=== PATIENT | female | born 1965 | race Caucasian/White ===

== ENCOUNTER → 2016-06-05 | Outpatient (CLI) | payer MEDICARE ==
[~2016-06-05] MED LIST: BACLOFEN20 MG PO; BACTRIM DS 8001 TAB PO; BENZTROPINE PO; DARVOCET-N 1001 EACH PO; GEODON80 MG PO; KEFLEX 500MG.500 MG PO; KLONOPIN1 M2 PO; LEVAQUIN 500 M500 MG PO; LORTAB 5/500 501 TAB PO; LORTAB 500 MG-71 TAB PO; MELOXICAM15 MG PO; METHOCARBAMOL500 MG PO; NEURONTIN800 MG PO; NORCO 325 MG-51 TAB PO; OMEPRAZOLE40 MG PO; Oxybutynin5 MG PO; PAXIL30 MG PO; PENTASA500 MG PO; PREVACID 30MG C30 M1 OR; PYRIDIUM 200MG200 MG PO; RESTORIL 30MG C30 MG PO; SULFAMETHOXAZOL1 TA6 PO; TENORMIN50 MG PO; VESICARE5 MG PO; XANAX2 MG PO
[2016-06-05 15:04] LABS: HEMOGLOBIN 12.3 g/dL (12.2-16.2); LYMPH # 2.4 K/mm3 (0.7-4.5); LYMPH % 35.8 % (10-50.0)
[2016-06-05 15:06] LABS: BUN 17 mg/dL (7-18)
[2016-06-05 15:19] LABS: GFR (ESTIMATED) 59 ML/MIN (59-)
[2016-06-06 07:37] LABS: HBsAg Screen Negative (Negative); Hep A Ab, IgM Negative (Negative); Hep B Core Ab, IgM Negative (Negative); Hep C Virus Ab 0.2 (0.0-0.9)
== END ==
LOC: CARL-LAB 07:41
PROVIDERS: Nurse Practitioner Family
DX: K50.90 Crohn's disease, unspecified, without complications (principal); Z13.9 Encounter for screening, unspecified; F32.89 Other specified depressive episodes; Z79.899 Other long term (current) drug therapy

== ENCOUNTER → 2016-10-07 | Outpatient (CLI) | payer MEDICARE ==
[2016-10-07 13:03] LABS: BUN 16 mg/dL (7-18)
[2016-10-07 13:04] LABS: GFR (ESTIMATED) 48 ML/MIN (59-)
[2016-10-07 13:46] LABS: HEMOGLOBIN 12.4 g/dL (12.2-16.2); LYMPH # 2.6 K/mm3 (0.7-4.5); LYMPH % 37.6 % (10-50.0)
--- NOTE | 2016-10-08 07:31 | RADIOLOGY REPORT PS360 ---
MRI-BRAIN W/WO HISTORY: Memory loss, dizziness, blurred vision MEMORY LOSS, SLEEP-DISORDERED BREATHING ORDERING PHYSICIAN: ZAHRA QUINN PATIENT AGE: 50 years COMPARISON: 02/07/2016 TECHNIQUE: Standard multiplanar multiecho sequences are performed without and with gadolinium enhancement . FINDINGS: No midline shift, mass effect, intracranial hemorrhage, or hydrocephalus. No enhancing lesions are evident. No intra or extra-axial mass. No evidence of acute infarction. No restricted diffusion. The cerebellopontine angles, cerebellum, and brainstem are unremarkable. The pituitary and optic chiasm are unremarkable. No cerebellar tonsillar ectopia. The canthal gyri are unremarkable in the temporal horns are symmetric. There are bilateral mastoid effusions. No sinus air-fluid level. Mild mucosal thickening involves the ethmoid and right frontal sinus with moderate rightward nasal septal deviation. IMPRESSION: 1. Negative MRI of the brain without and with contrast. 2. Bilateral mastoid sinus disease, paranasal sinus disease, rightward nasal septal deviation
[2016-10-09 12:41] LABS: Antinuclear Antibodies, IFA Negative (.)
== END ==
LOC: RAD 10-01 10:00
PROVIDERS: Specialist
DX: R41.3 Other amnesia (principal); F39 Unspecified mood [affective] disorder; K50.90 Crohn's disease, unspecified, without complications; E78.5 Hyperlipidemia, unspecified; G93.40 Encephalopathy, unspecified; G47.30 Sleep apnea, unspecified
CPT/HCPCS: A9576

== ENCOUNTER → 2016-12-29 | Outpatient (CLI) | payer MEDICARE ==
[~2016-12-29] MED LIST changes: +MOBIC7.5 MG PO; +ROBAXIN-750750 MG PO
[2016-12-29 21:02] LABS: AMPHETAMINES/METAMPHETAMINES NEGATIVE ng/mL (<1000)
[2017-01-04 18:36] LABS: Alprazolam Negative (Cutoff=100); Benzodiazepines Positive ng/mL (Cutoff=100); Clonazepam Positive (.); Clonazepam Confirm 597 ng/mL (Cutoff=100); Flurazepam Negative (Cutoff=100); Lorazepam Negative (Cutoff=100); Midazolam Negative (Cutoff=100); Temazepam Negative (Cutoff=100); Triazolam Negative (Cutoff=100)
== END ==
LOC: LAB 17:58
PROVIDERS: Emergency Medicine
DX: Z79.899 Other long term (current) drug therapy (principal)
CPT/HCPCS: G0480

== ENCOUNTER → 2017-01-27 | Outpatient (CLI) | payer MEDICARE ==
--- NOTE | 2017-01-27 16:33 | RADIOLOGY REPORT PS360 ---
SACRUM AND COCCYX HISTORY: BUTTOCK PAIN ORDERING PHYSICIAN: Papa Palumbo MD PATIENT AGE: 51 years COMPARISON: None FINDINGS: No fracture or dislocation. No lytic or blastic change. Incidental note made of soft tissue calcification superior to the right greater trochanter. IMPRESSION: Negative sacrum/coccyx
[2017-01-27 16:55] LABS: AMPHETAMINES/METAMPHETAMINES NEGATIVE ng/mL (<1000)
[2017-01-27 18:27] LABS: HEMOGLOBIN 12.5 g/dL (12.2-16.2); LYMPH # 2.3 K/mm3 (0.7-4.5); LYMPH % 33.6 % (10-50.0)
[2017-01-27 19:07] LABS: BUN 12 mg/dL (7-18)
[2017-01-27 19:58] LABS: GFR (ESTIMATED) 53 ML/MIN (59-)
[2017-02-01 14:36] LABS: Alprazolam Negative (Cutoff=100); Benzodiazepines Positive ng/mL (Cutoff=100); Clonazepam Positive (.); Clonazepam Confirm >100 ng/mL (Cutoff=100); Flurazepam Negative (Cutoff=100); Lorazepam Negative (Cutoff=100); Midazolam Negative (Cutoff=100); Temazepam Negative (Cutoff=100); Triazolam Negative (Cutoff=100)
== END ==
LOC: RAD 15:15 → LAB 15:15
PROVIDERS: Emergency Medicine
DX: M79.1 Myalgia (principal); R53.83 Other fatigue; Z79.899 Other long term (current) drug therapy
CPT/HCPCS: G0480

== ENCOUNTER 2017-02-14 13:14 | Emergency (ER) | payer MEDICARE ==
[~2017-02-14] VITALS: Ht 175.3 cm; Wt 86.2 kg
--- NOTE | 2017-02-14 13:35 | Emergency Room Report ---
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 N Clinical Suspician of Infection? N Mental Status: 1 - Regular (Normal Baseline) Sepsis Risk:Low Sepsis Risk Have you (or family members/close friends) recently traveled outside the [place]? N If Yes, where/when: Have you had exposure to infectious disease within the past month? TB? Other? Specify: 51 years old white female with chronic lumbar back pain presented with 2 months history LEFT CVA pain no dysuria no hematuria no nausea no vomiting. No fever or chills. Source patient, RN notes reviewed, family, old records, I reviewed her records including Dr. Doe and Dr. Johsnon. ALLERGIES Coded Allergies: hydroxyzine (From [facility]) (Mild, 02/14/17) Home Medications Active Scripts Meloxicam (Mobic 7.5MG) 7.5 MG PO BID #30 TAB Prov: 11/07/16 Reported Medications Paroxetine (Paxil) 30 MG PO BID Lansoprazole (Prevacid) 30 MG OR DAILY ZIPRASIDONE HCL (Geodon) 80 MG PO QHS Omeprazole (Omeprazole 40MG) 40 MG PO DAILY #90 Gabapentin (Neurontin) 800 MG PO TID Oxybutynin Chloride 5 MG PO TID Benztropine Mesylate (Benztropine) 1 MG PO DAILY Clonazepam (Klonopin) 1 MG PO TID HYDROCODONE/ACETAMINOPHEN ([place] 5-325 Tablet) 1 TAB PO Q8 History Medical History General CAD? No Angina: Yes ID: No Hypertension? Yes Hyperlipidemia? No CHF? No DVT? No PE? No COPD? No Asthma? No Anemia? No GERD? No Gastric ulcers? No GI Bleed? No Hernia? Yes Thyroid Problems? No Hypothyroidism? No CVA? No Seizures? No Diabetes? No Renal Insuffiency? No End Stage Renal Disease? No UTI? Yes Stones? No BPH? No GB Disease: No Nephritic Syndrome? No Asplenia? No Hepatitis? No Sickle Cell Disease? No Arthritis? Yes Migraines? No Cataracts? No Glaucoma? No MRSA? No HIV? No TB? No Anxiety? No Depression? No Cancer? No More? 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 Respiratory no symptoms reported Cardiovascular no symptoms reported Gastrointestinal no symptoms reported Genitourinary see HPI. Musculoskeletal no symptoms reported Skin no symptoms reported Psychiatric/Neurological no symptoms reported Physical Exam Vital Signs Vital Signs Date Time Temp Pulse Resp B/P Pulse O2 O2 Flow FiO2 Ox Delivery Rate 02/14 1355 16 02/14 1330 98.0 94 18 123/96 98 - WBC >12,000 or <4,000 or 10% bands? 2 or more SIRS Criteria Met? B/P:123/96 MAP:105 Creatinine >2.0? UA output<0.5ml/kg/hr for 2 hrs? Platelet count >100,000? Lactate >2.0mmol/1? INR >1.2 or PTT > than 60 sec? Evidence of Organ Dysfunction? Provider documented clinical suspician of infection? N Sepsis Criteria Count: 1 Sepsis Risk: Low Sepsis Risk General Appearance normal appearance, WD/WN Eye Exam - bilateral eye normal exam, bilateral eye PERRL, bilateral eye EOMI Ear, Nose, Throat hearing grossly normal, normal ENT inspection Neck normal inspection, non-tender, supple, full range of motion Respiratory Status Yes: trachea midline, chest symmetrical, non tender chest. No: respiratory distress. Lung Sounds bilateral: normal breath sounds, lungs clear. 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 No Results/Orders Laboratory Tests 02/14/17 1345: Sodium 138, Potassium 4.2, Chloride 103, Carbon Dioxide 30, BUN 15, Creatinine 1.1 H, Estimated Creat Clear 83, Estimated GFR (MDRD) 53 L, Glucose 94, Calcium 8.5, Total Bilirubin 0.4, AST 12 L, ALT 17, Alkaline Phosphatase 84, Total Protein 7.3, Albumin 3.5, Globulin 3.8 H, Albumin/Globulin Ratio 0.9 L, WBC 6.5, RBC 4.65, Hgb 12.2, Hct 36.6 L, MCV 78.6 L, RDW 13.8, Plt Count 271, MPV 8.4, Gran % 48.3, Gran # 3.2, Lymphocytes % 41.4, Monocytes % 6.2, Eosinophils % 3.3, Basophils % 0.8, Lymphocytes # 2.7, Monocytes # 0.4, Eosinophils # 0.2, Basophils # 0.1, PUBS MCHC 33.4, MCH 26.3 L 02/14/17 1330: Urine Color YELLOW, Urine Appearance CLEAR, Urine pH 6.0, Ur Specific [employer] >= 1.030, Urine Protein NEGATIVE, Urine Ketones NEGATIVE, Urine Blood NEGATIVE, Urine Nitrate NEGATIVE, Urine Bilirubin NEGATIVE, Urine Urobilinogen 0.2, Ur Leukocyte Esterase NEGATIVE, Urine WBC 3-5, Ur Squamous Epith Cells 10-20, Urine Bacteria 3+, Urine Mucus 3+, Urine Glucose NEGATIVE Current Medication Orders Sig/Chip Start time Last Medication Dose Route Stop Time Status Admin Iopamidol 75 ML ONCE ONE 02/14 1600 UNV 02/14 IV 02/14 1601 1400 Sodium Chloride 10 ML ONCE ONE 02/14 1600 UNV 02/14 IV 02/14 1601 1400 Sodium Chloride 1,000 ML .STK-MED ONE 02/14 1352 DC IV Ketorolac 0 .STK-MED ONE 02/14 1351 DC Tromethamine .ROUTE Sodium Chloride 10 ML PRN PRN 02/14 1345 AC IV 02/15 1333 Ketorolac 30 MG ONCE ONE 02/14 1330 DC 02/14 Tromethamine IV 02/14 1331 1355 Sodium Chloride 1,000 ML .Q1H1M 02/14 1330 DC 02/14 IV 02/14 1430 1356 Sodium Chloride 10 ML PRN PRN 02/14 1330 AC IV 02/15 1330 Orders Procedure Date/time Status DIET-NOTHING BY MOUTH 02/[address] SCAN REQ 02/14 1333 Complete IV SALINE LOCK 02/14 1333 Active CULTURE, URINE 02/14 133 Active URINALYSIS/COMPLETE 02/14 133 Complete CBC WITH AUTO DIFF 02/14 133 Complete CHEM 12 PROFILE 02/14 133 Complete Departure Departure Time of Disposition 1600 Disposition DC Home or Self Care(routine) Clinical Impression Primary Impression: Renal cyst, left Secondary Impressions: Chronic back pain, Constipation, Crohn disease, Ovarian cyst Condition STABLE Referrals [facility] RIVERA,Marc Larsen Additional Instructions the CT scan impression. :The received Toradol IV with relief of her pain. 1. No change 7 cm left renal cyst. 2. 2 cm left ovarian cyst. 3. Constipation I discussed withthe patietn her ct scan findings and advised her to return to Dr Doe regarding her CT findings. I gave her indocine 25 mg TID prn pain follow up with Dr. Squires in AM. Discharge Counseling Counseled pt/family regarding diagnosis, test results, medications/RX, home care, follow up needs Prescriptions Current Visit Scripts Indomethacin (Indocin) 25 MG PO Q8HP PRN pain #21 CAP ED Critical Care Critical Care No If Critical Care minutes are documented, the time involved in the performance of seperately reportable procedures was not counted toward critical care time documented. I directly delivered medical care to this critically ill and/or injured patient. Timely evaluation and treatment was necessary to address the significant organ system(s) dysfunction present in this patient. at 1604
[2017-02-14 13:44] LABS: URINE BILIRUBIN - DIPSTICK NEGATIVE (NEG); URINE BLOOD NEGATIVE (NEG)
[2017-02-14 13:53] LABS: HEMOGLOBIN 12.2 g/dL (12.2-16.2); LYMPH # 2.7 K/mm3 (0.7-4.5); LYMPH % 41.4 % (10-50.0)
--- NOTE | 2017-02-14 15:41 | RADIOLOGY REPORT PS360 ---
CT ABD PELVIS W/ CONTRAST CLINICAL INDICATION: Left-sided flank pain LEFT CVA PAIN WITH HX OF PYELONEPHRITIS ORDERING PHYSICIAN: Ирина Antunez MD PATIENT AGE: 51 years COMPARISON: 06/06/2016 TECHNIQUE: Axial images obtained with sagittal and coronal reformats. PROCEDURE: Oral Contrast: None IV Contrast:. 75 mL [id number]. FINDINGS: There are atelectatic changes in the lung bases with trace pleural effusion bilaterally. The liver, gallbladder, spleen, adrenal glands, and pancreas are unremarkable. There is a 7 cm left renal cyst. No hydronephrosis or obstructing ureteral calculi evident. No evidence of appendicitis, diverticulitis, intestinal obstruction, or free air. There is moderate amount retained colonic feces throughout the colon. There is a 2.3 cm left ovarian cyst. No acute bony anomalies. Defect is present in the proximal femur from prior intramedullary tao. No acute bony anomalies. IMPRESSION: 1. No change 7 cm left renal cyst. 2. 2 cm left ovarian cyst. 3. Constipation
[2017-02-14] MEDS ORDERED: INDOCIN25 MG PO (16:04)
[2017-02-14 16:47] VITALS: BP 166/101
== END 2017-02-14 16:48 | disposition home or self-care (01) ==
LOC: ER 13:14
PROVIDERS: Emergency Medicine
DX: N28.1 Cyst of kidney, acquired (principal); K59.00 Constipation, unspecified; N83.202 Unspecified ovarian cyst, left side; K50.90 Crohn's disease, unspecified, without complications; I10 Essential (primary) hypertension; Z88.8 Allergy status to other drugs, medicaments and biological substances
CPT/HCPCS: Q9967

== ENCOUNTER → 2017-02-24 | Outpatient (CLI) | payer MEDICARE ==
[~2017-02-24] MED LIST changes: +INDOCIN25 MG PO
[2017-02-24 17:08] LABS: AMPHETAMINES/METAMPHETAMINES NEGATIVE ng/mL (<1000)
== END ==
LOC: LAB 16:00
PROVIDERS: Emergency Medicine
DX: Z79.899 Other long term (current) drug therapy (principal)

== ENCOUNTER → 2017-04-27 | Outpatient (CLI) | payer MEDICARE ==
[~2017-04-27] MED LIST changes: +HIPREX1 GM PO
[2017-04-27 17:45] LABS: AMPHETAMINES/METAMPHETAMINES NEGATIVE ng/mL (<1000)
[2017-05-01 12:36] LABS: Alprazolam Negative (Cutoff=100); Benzodiazepines Positive ng/mL (Cutoff=100); Clonazepam Positive (.); Clonazepam Confirm 454 ng/mL (Cutoff=100); Flurazepam Negative (Cutoff=100); Lorazepam Negative (Cutoff=100); Midazolam Negative (Cutoff=100); Temazepam Negative (Cutoff=100); Triazolam Negative (Cutoff=100)
== END ==
LOC: LAB 16:57
PROVIDERS: Emergency Medicine
DX: N39.0 Urinary tract infection, site not specified (principal); Z79.899 Other long term (current) drug therapy
CPT/HCPCS: G0480